=== PATIENT | male | born 1990 | race Asian ===

== ENCOUNTER 2020-06-18 20:25 | Emergency (ER) | payer SELFPAY ==
[~2020-06-18] VITALS: Ht 162.6 cm; Wt 59.9 kg
--- NOTE | 2020-06-18 21:42 | Emergency Department Note ---
History of Present Illnes History of Present Illness Chief Complaint: Eye, Ear, Nose, Throat, Dental History of Present Illness This is a 30 year old male, with no significant past medical history who presents with 2 day history of tooth pain, #9. Patient states that yesterday he noted a tender, raised area on the gingiva above tooth #9. He attempted to pop it, a squeezing, but no drainage occurred. Patient presents this evening, due to the pain. He states that he has a dental appointment in 2 days, which is the soonest that they could see him. Patient recalls having similar symptoms several months ago involving the same tooth, where the raised area drained, and the symptoms resolved. This tooth is peres in color, since he injured it during childhood. He denies any fever, chills, nausea, or vomiting. He has taken Tylenol, and applied Orajel topically, without relief of the symptoms. 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 Onset (how long ago): day(s) (2) Location: tooth #9 Quality: throbbing/aching pain Radiation: Reports non-radiation Severity: severe Onset quality: sudden Duration (how long): day(s) (2) Timing of current episode: constant Progression: unchanged Chronicity: new Context: Denies recent illness, Denies trauma/injury Relieving factors: cold therapy (drinking cold fluids, "numbs" the pain.) Exacerbating factors: eating Associated symptoms: Denies cough, Denies fever/chills, Denies nausea/vomiting Treatments prior to arrival: other (Tylenol and Orajel) Risk factors: Lack of dental care, he cannot recall his last dental appointment. Past Medical/Family History Physician Review I have reviewed the patient's past medical and family history. Any updates have been documented here. Past Medical History Recent Fever: No Clinical Suspicion of Infectio: Yes New/Unexplained Change in Ment: No Past Medical History: Anxiety Other Surgery: Metal plate in his head Social History Smoking Cessation: Current every day smoker Counseling Performed: Yes Any Illegal Drug Use: Yes (marijuana) TB Exposure/Symptoms: No Other Any Pre-Existing Lines (PICC,: No Is patient up to date on immun: No Review of Systems Review of Systems Constitutional: Denies chills, Denies fever EENTM: Reports mouth pain (pain in tooth #9, and surrounding gingiva) Cardiovascular: Reports no symptoms Respiratory: Denies cough, Denies dyspnea Gastrointestinal: Denies nausea, Denies vomiting Genitourinary: Reports no symptoms Musculoskeletal: Reports no symptoms Integumentary: Reports no symptoms; Denies rash Review of other systems: All other systems negative Physical Exam Related Data Allergies: Coded Allergies: No Known Allergies (Unverified , 06/18/20) Vital signs reviewed: Yes Physical Exam CONSTITUTIONAL Constitutional: Present well-developed, Present well-nourished; Absent distressed, Absent ill appearing HENT HENT: Present normocephalic, Present atraumatic, Present nose normal, Present dental caries, Present other (periapical abscess of tooth #9, area is ttp without fluctuance.); Absent oropharyngeal exudate HENT L/R: Present left ext ear normal, Present right ext ear normal EYES Eyes: Reports PERRL, Reports conjunctivae normal NECK Neck: Present ROM normal PULMONARY Pulmonary: Present effort normal, Present breath sounds normal CARDIOVASCULAR Cardiovascular: Present regular rhythm, Present heart sounds normal, Present capillary refill normal, Present normal rate GASTROINTESTINAL GENITOURINARY SKIN Skin: Present warm, Present dry MUSCULOSKELETAL NEUROLOGICAL Neurological: Present alert, Present oriented x 3 PSYCHOLOGICAL Psychological: Present mood/affect normal, Present judgement normal Assessment & Plan Medical Decision Making MDM - In addition to the medications prescribed, recommend that you take Ibuprofen 200 mg3 tablets together every 6 hours for the next 2-3 days, to help control the pain. - Apply ice to the area of pain, to help with pain and swelling. - Follow-up for your dental appointment, as scheduled, on 06/20/2020. - Follow-up if your mouth swelling worsens, or if he had difficulty opening her mouth, or swallowing. Assessment & Plan Final Impression: (1) Dental abscess (2) Pain, dental (3) Dental caries Depart Disposition: HOME, SELF-senior care Meds Active Scripts Acetaminophen/Codeine* (TYLENOL # 3*) 1 Ea Tab, 1-2 TAB PO Q6H for pain , #20 TAB 0 [address]ills Do [address] take and drive or operate machinery. Prov:TOÑO HORTON MD 06/18/20 Amoxicillin (AMOXICILLIN) 250 Mg Capsule, 500 MG PO TID for tooth infection for 10 Days, #30 CAP 0 Refills Take ALL antibiotics. Prov:TOÑO HORTON MD 06/18/20 TOÑO HORTON MD Jun 18, 2020 21:42
[2020-06-18] MEDS ORDERED: IBUPROFEN 600 MG TAB PO STA (22:28)
[2020-06-18] MEDS ORDERED: AMOXICILLIN/CLAVULANATE K 875 MG TAB PO STA (22:28)
[2020-06-18] MEDS ORDERED: HYDROCODONE/APAP 5MG-325MG TAB PO ONE (22:30)
[2020-06-18] MEDS ORDERED: AMOXICILLIN250 MG PO (22:34)
[2020-06-18] MEDS ORDERED: TYLENOL # 31 EA PO (22:37)
== END 2020-06-18 23:06 | disposition home or self-care (01) ==
LOC: FSED 20:45
DX: K04.7 Periapical abscess without sinus (principal); K02.9 Dental caries, unspecified; F41.9 Anxiety disorder, unspecified; F17.210 Nicotine dependence, cigarettes, uncomplicated
CPT/HCPCS: 99283

== ENCOUNTER 2021-07-14 18:19 | Emergency (ER) | payer SELFPAY ==
[~2021-07-14] VITALS: Ht 162.6 cm; Wt 56.7 kg
[~2021-07-14 18:19] MED LIST: AMOXICILLIN250 MG PO; TYLENOL # 31 EA PO
[2021-07-14] MEDS ORDERED: TRAMADOL HCL 50 MG TAB PO STA (19:30)
[2021-07-14] MEDS ORDERED: ULTRAM 50MG50 MG PO (19:39)
[2021-07-14] MEDS ORDERED: TRAMADOL HCL 50 MG TAB ONE (19:43)
== END 2021-07-14 19:56 | disposition home or self-care (01) ==
LOC: FSED 18:33
DX: S62.397A Other fracture of fifth metacarpal bone, left hand, initial encounter for closed fracture (principal); W22.09XA Striking against other stationary object, initial encounter; Y99.8 Other external cause status
CPT/HCPCS: 99283

== ENCOUNTER 2024-03-12 21:05 | Emergency (ER) | payer SELFPAY ==
[~2024-03-12] VITALS: Ht 162.6 cm; Wt 56.7 kg
[~2024-03-12 21:05] MED LIST changes: +ULTRAM 50MG50 MG PO
[2024-03-12 21:54] VITALS: PULSE 120; RESP 16; TEMP 97.2
[2024-03-13 00:48] VITALS: BP 118/71; PULSE 98; RESP 18; TEMP 97.2; O2SAT 97
== END 2024-03-13 00:48 | disposition home or self-care (01) ==
LOC: FSED 21:21
DX: M79.672 Pain in left foot (principal); S90.32XA Contusion of left foot, initial encounter; Y93.01 Activity, walking, marching and hiking; Y92.89 Other specified places as the place of occurrence of the external cause; F41.9 Anxiety disorder, unspecified; F17.210 Nicotine dependence, cigarettes, uncomplicated
CPT/HCPCS: 99283

== ENCOUNTER 2024-11-26 15:36 | Emergency (ER) | payer SELFPAY ==
[~2024-11-26] VITALS: Ht 162.6 cm; Wt 55.8 kg
[2024-11-26 18:10] VITALS: PULSE 66; RESP 16; TEMP 98.1; O2SAT 97
[2024-11-26] MEDS ORDERED: CETIRIZINE1 MG/1 ML PO (18:24)
[2024-11-26] MEDS ORDERED: GUAIFENESI100 MG/5 M PO ×2 (18:26→18:27)
[2024-11-26] MEDS ORDERED: NAPROSYN500 MG PO (18:48)
[2024-11-26] MEDS ORDERED: METHOCARBAMOL500 MG PO (18:50)
== END 2024-11-26 19:01 | disposition home or self-care (01) ==
LOC: FSED 15:41
DX: R07.89 Other chest pain (principal); S22.41XA Multiple fractures of ribs, right side, initial encounter for closed fracture; M62.830 Muscle spasm of back; W18.39XA Other fall on same level, initial encounter; Y93.01 Activity, walking, marching and hiking; Y92.89 Other specified places as the place of occurrence of the external cause; F41.9 Anxiety disorder, unspecified; F17.210 Nicotine dependence, cigarettes, uncomplicated
CPT/HCPCS: 71101; 99283